=== PATIENT | male | born 1955 | race Hispanic/Latino ===

== ENCOUNTER 2023-02-22 00:28 | Emergency (ER) | payer OTHER ==
[~2023-02-22] VITALS: Ht 170.2 cm; Wt 100.7 kg
[2023-02-22 01:49] VITALS: BP 145/82; PULSE 85; RESP 18; O2SAT 99
== END 2023-02-22 01:55 | disposition home or self-care (01) ==
LOC: EDH 00:28
DX: I10 Essential (primary) hypertension (principal); E11.9 Type 2 diabetes mellitus without complications; E78.00 Pure hypercholesterolemia, unspecified